=== PATIENT | male | born 1960 | race Caucasian/White ===

== ENCOUNTER 2017-08-03 04:47 | Inpatient (IN) | payer MEDICARE ==
[2017-08-03] MEDS: NS 1,000 ML IV ×3 (05:45→22:03)
[2017-08-03 06:52] LABS: ANION GAP 13 MEQ/L (8-16); BLOOD UREA NITROGEN 72 MG/DL (7-18); CALCIUM LEVEL 7.3 MG/DL (8.5-10.1); CARBON DIOXIDE LEVEL 22 MEQ/L (21-32); CHLORIDE LEVEL 96 MEQ/L (98-107); GLOMERULAR FILTRATION RATE 24.2 (>56); GLUCOSE, FASTING 95 MG/DL (70-100); POTASSIUM SERUM 4.8 MEQ/L (3.5-5.1); SODIUM LEVEL 131 MEQ/L (136-145)
[2017-08-03 06:55] LABS: CPK CREATINE PHOSPHOKINASE 888 U/L (39-308)
[2017-08-03] MEDS ORDERED: GLUCOSE 4 GM CHEW TABLET PO (09:45)
[2017-08-03] MEDS ORDERED: GLUCAGON FOR INJ 1 MG VIAL (J1610) SC (09:45)
[2017-08-03] MEDS ORDERED: DEXTROSE 50% 50 ML SYRINGE IV (09:45)
[2017-08-03] MEDS ORDERED: ONDANSETRON 4MG/2ML VIAL (J2405) IV (10:00)
[2017-08-03 11:40] LABS: BASO % 0.2 % (0.0-1.0); EOS # 0.2 10^3/uL (0.0-0.50); EOS % 1.7 % (0.0-3.0); HEMATOCRIT 31.5 % (42.0-52.0); IMMATURE GRANULOCYTE % 0.2 % (0-3.0); LYMPH % 22.8 % (24.0-44.0); MEAN CORPUSCULAR HEMOGLOBIN 30.2 pg (27.0-33.0); MEAN CORPUSCULAR HGB CONC 34.9 g/dl (32.0-36.5); MEAN CORPUSCULAR VOLUME 86.5 fl (80.0-96.0); MONO # 0.5 10^3/uL (0.0-0.8); MONO % 6.1 % (0.0-5.0); NEUTROPHILS # 6.1 10^3/uL (1.8-7.7); PLATELET COUNT, AUTOMATED 203 10^3/uL (150-450); RED BLOOD COUNT 3.64 10^6/uL (4.30-6.10); RED CELL DISTRIBUTION WIDTH 13.1 % (11.5-14.5); WHITE BLOOD COUNT 8.9 10^3/uL (4.0-10.0)
[2017-08-03 11:42] LABS: KETONE, URINE AUTO RFX NEGATIVE (NEGATIVE); LEUKOCYTE ESTERASE UR AUTO RFX NEGATIVE (NEGATIVE); MUCUS, URINE RFX SMALL (NEGATIVE); NITRITE, URINE AUTO RFX NEGATIVE (NEGATIVE); RBC, URINE AUTO RFX 76 /HPF (0-3); SPECIFIC GRAVITY UR AUTO RFX 1.011 (1.002-1.035); SQUAM EPITHELIAL CELL UR AURFX 0 /HPF (0-6); WBC, URINE AUTO RFX 3 /HPF (0-3)
[2017-08-03 11:47] LABS: OSMOLALITY URINE 342 MOSM/KG (500-800)
[2017-08-03 11:54] LABS: AMPHETAMINES LEVEL URINE POSITIVE (NEGATIVE); BARBITURATES URINE NEGATIVE (NEGATIVE); BENZODIAZEPINES URINE POSITIVE (NEGATIVE); CANNABINOIDS URINE NEGATIVE (NEGATIVE); CHLORIDE,RANDOM URINE < 10 MEQ/L; COCAINE METABOLITE URINE NEGATIVE (NEGATIVE); METHADONE URINE NEGATIVE (NEGATIVE); OPIATES URINE POSITIVE (NEGATIVE); PHENCYCLIDINE URINE NEGATIVE (NEGATIVE); POTASSIUM RANDOM URINE 18.2 MEQ/L; SODIUM,RANDOM URINE 36 MEQ/L; TOTAL PROTEIN,RANDOM URINE 23.7 MG/DL (0.0-12.0)
[2017-08-03 12:04] LABS: ACETAMINOPHEN LEVEL 2.2 UG/ML (10.0-30.0); CK-MB VALUE MASS 17.2 NG/ML (0.0-3.6); CPK CREATINE PHOSPHOKINASE 812 U/L (39-308); ETHYL ALCOHOL (ETHANOL) < 0.003 % (0.000-0.010); MB/CK RELATIVE INDEX 2.11 (< OR =4); SALICYLATE LEVEL < 1.7 MG/DL (5.0-30.0); THYROXINE (T4) 12.1 UG/DL (4.5-12.0); TROPONIN I < 0.02 NG/ML (< 0.10)
[2017-08-03 12:05] LABS: ESTIMATED AVERAGE GLUCOSE 169 MG/DL (60-110); HEMOGLOBIN A1c 7.5 %
[2017-08-03 12:30] LABS: FREE THYROXINE INDEX 4.4 % (1.4-3.8); T UPTAKE 36 % (33-40); THYROID STIMULATING HORMONE 0.788 uIU/ML (0.358-3.740)
[2017-08-03] MEDS: PREGABALIN 100 MG CAP (LYRICA) PO ×3 (12:34→22:05)
[2017-08-03] MEDS: HEPARIN SOD (PORCINE) 5000 UNITS/ML VIAL SC ×2 (12:34→13:33)
[2017-08-03] MEDS: SENOKOT S TAB PO ×2 (12:34→22:05)
[2017-08-03] MEDS: HumaLOG INSULIN (NovoLOG) PER UNIT SC ×3 (12:50→21:00)
[2017-08-03] MEDS: LEVEMIR (INSULIN DETEMIR) 1 UNITS/0.01ML SC ×2 (12:50→22:06)
[2017-08-03 12:51] LABS: BEDSIDE GLUCOSE 145 MG/DL (70-105)
[2017-08-03 16:25] LABS: CK-MB VALUE MASS 14.2 NG/ML (0.0-3.6); CPK CREATINE PHOSPHOKINASE 695 U/L (39-308); MB/CK RELATIVE INDEX 2.04 (< OR =4); TROPONIN I < 0.02 NG/ML (< 0.10)
[2017-08-03 16:51] LABS: BEDSIDE GLUCOSE 214 MG/DL (70-105)
[2017-08-03] MEDS ORDERED: TERAZOSIN 5 MG CAP PO (21:00)
[2017-08-03] MEDS: TAMSULOSIN 0.4 MG CAP PO (22:04)
[2017-08-03] MEDS: traZODone 100 MG TAB PO (22:04)
[2017-08-03] MEDS: FINASTERIDE 5 MG TAB PO (22:05)
[2017-08-03 22:14] LABS: BEDSIDE GLUCOSE 242 MG/DL (70-105)
[2017-08-04 05:45] LABS: HEMATOCRIT 34.8 % (42.0-52.0); HEMOGLOBIN 11.7 g/dl (14.0-18.0); MEAN CORPUSCULAR HEMOGLOBIN 29.5 pg (27.0-33.0); MEAN CORPUSCULAR HGB CONC 33.6 g/dl (32.0-36.5); MEAN CORPUSCULAR VOLUME 87.7 fl (80.0-96.0); PLATELET COUNT, AUTOMATED 225 10^3/uL (150-450); RED BLOOD COUNT 3.97 10^6/uL (4.30-6.10); RED CELL DISTRIBUTION WIDTH 13.2 % (11.5-14.5); WHITE BLOOD COUNT 6.3 10^3/uL (4.0-10.0)
[2017-08-04] MEDS: NS 1,000 ML IV (05:51)
[2017-08-04 06:13] LABS: ALBUMIN 3.1 GM/DL (3.2-5.2); ANION GAP 5 MEQ/L (8-16); BLOOD UREA NITROGEN 32 MG/DL (7-18); CALCIUM LEVEL 8.1 MG/DL (8.5-10.1); CARBON DIOXIDE LEVEL 23 MEQ/L (21-32); CHLORIDE LEVEL 112 MEQ/L (98-107); CREATININE FOR GFR 0.82 MG/DL (0.70-1.30); GLUCOSE, FASTING 192 MG/DL (70-100); MAGNESIUM LEVEL 2.4 MG/DL (1.8-2.4); PHOSPHORUS LEVEL 1.9 MG/DL (2.5-4.9); SODIUM LEVEL 140 MEQ/L (136-145)
[2017-08-04 06:14] LABS: GLOMERULAR FILTRATION RATE > 60.0 (>56); POTASSIUM SERUM 5.3 MEQ/L (3.5-5.1)
[2017-08-04] MEDS: SENOKOT S TAB PO ×2 (08:38→21:00)
[2017-08-04] MEDS: PREGABALIN 100 MG CAP (LYRICA) PO ×3 (08:39→21:49)
[2017-08-04] MEDS: HEPARIN SOD (PORCINE) 5000 UNITS/ML VIAL SC ×2 (08:39→21:54)
[2017-08-04] MEDS: HumaLOG INSULIN (NovoLOG) PER UNIT SC ×4 (08:40→21:00)
[2017-08-04] MEDS: LEVEMIR (INSULIN DETEMIR) 1 UNITS/0.01ML SC ×2 (10:03→21:52)
[2017-08-04 12:12] LABS: BEDSIDE GLUCOSE 203 MG/DL (70-105)
[2017-08-04 17:42] LABS: BEDSIDE GLUCOSE 176 MG/DL (70-105)
[2017-08-04] MEDS: traZODone 100 MG TAB PO (21:49)
[2017-08-04] MEDS: TAMSULOSIN 0.4 MG CAP PO (21:49)
[2017-08-04] MEDS: ACETAMINOPHEN TAB 650MG DOSE (2X325MG) PO (21:49)
[2017-08-04] MEDS: FINASTERIDE 5 MG TAB PO (21:50)
[2017-08-04] MEDS: ANALGESIC BALM CRM 120 GM TOP (21:51)
[2017-08-04 22:29] LABS: BEDSIDE GLUCOSE 229 MG/DL (70-105)
[2017-08-05 05:09] LABS: HEMATOCRIT 33.7 % (42.0-52.0); HEMOGLOBIN 11.6 g/dl (14.0-18.0); MEAN CORPUSCULAR HEMOGLOBIN 30.1 pg (27.0-33.0); MEAN CORPUSCULAR HGB CONC 34.4 g/dl (32.0-36.5); MEAN CORPUSCULAR VOLUME 87.5 fl (80.0-96.0); PLATELET COUNT, AUTOMATED 239 10^3/uL (150-450); RED BLOOD COUNT 3.85 10^6/uL (4.30-6.10); RED CELL DISTRIBUTION WIDTH 13.2 % (11.5-14.5)
[2017-08-05 05:27] LABS: ALBUMIN 3.2 GM/DL (3.2-5.2); ANION GAP 7 MEQ/L (8-16); BLOOD UREA NITROGEN 24 MG/DL (7-18); CALCIUM LEVEL 8.6 MG/DL (8.5-10.1); CARBON DIOXIDE LEVEL 25 MEQ/L (21-32); CHLORIDE LEVEL 111 MEQ/L (98-107); GLOMERULAR FILTRATION RATE > 60.0 (>56); GLUCOSE, FASTING 135 MG/DL (70-100); MAGNESIUM LEVEL 2.2 MG/DL (1.8-2.4); PHOSPHORUS LEVEL 2.1 MG/DL (2.5-4.9); POTASSIUM SERUM 4.3 MEQ/L (3.5-5.1); SODIUM LEVEL 143 MEQ/L (136-145)
[2017-08-05] MEDS: ANALGESIC BALM CRM 120 GM TOP (08:01)
[2017-08-05] MEDS: LEVEMIR (INSULIN DETEMIR) 1 UNITS/0.01ML SC (08:01)
[2017-08-05] MEDS: SENOKOT S TAB PO (08:01)
[2017-08-05] MEDS: DULoxetine 30 MG CAP (CYMBALTA) PO (08:01)
[2017-08-05] MEDS: HumaLOG INSULIN (NovoLOG) PER UNIT SC ×2 (08:02→12:06)
[2017-08-05] MEDS: PREGABALIN 100 MG CAP (LYRICA) PO (08:02)
[2017-08-05] MEDS: HEPARIN SOD (PORCINE) 5000 UNITS/ML VIAL SC (08:03)
[2017-08-05 11:23] LABS: BEDSIDE GLUCOSE 125 MG/DL (70-105)
[2017-08-05] MEDS: hydroCHLOROthiazide 25 MG TAB PO (13:15)
[2017-08-06] MEDS ORDERED: hydroCHLOROthiazide 25 MG TAB PO (09:00)
== END 2017-08-05 14:53 | disposition home or self-care (01) | DRG 683 ==
LOC: M ED 04:47 → M ED INP 09:49 → M PCU 14:30
PROVIDERS: Hospitalist
DX: N17.9 Acute kidney failure, unspecified (principal); E87.1 Hypo-osmolality and hyponatremia; E11.9 Type 2 diabetes mellitus without complications; I10 Essential (primary) hypertension; F32.9 Major depressive disorder, single episode, unspecified; E66.9 Obesity, unspecified; M25.512 Pain in left shoulder; F17.210 Nicotine dependence, cigarettes, uncomplicated; N40.1 Benign prostatic hyperplasia with lower urinary tract symptoms; M54.9 Dorsalgia, unspecified; T44.6X5A Adverse effect of alpha-adrenoreceptor antagonists, initial encounter; F11.10 Opioid abuse, uncomplicated; M96.1 Postlaminectomy syndrome, not elsewhere classified; M53.3 Sacrococcygeal disorders, not elsewhere classified; R33.9 Retention of urine, unspecified; N32.0 Bladder-neck obstruction; Z88.5 Allergy status to narcotic agent; Z88.6 Allergy status to analgesic agent; Z79.899 Other long term (current) drug therapy; Z79.4 Long term (current) use of insulin; Z88.8 Allergy status to other drugs, medicaments and biological substances; Z68.34 Body mass index [BMI] 34.0-34.9, adult

== ENCOUNTER → 2019-02-12 | Outpatient (REF) ==
[~2019-02-12] MED LIST: ABIL5TAB PO; ACTO45TA; BENA25CA2 PO; CATA0.1T PO; CELE100C; CELE10TA; CELE10TA PO; CELE20TA; CELEXA; CYMB1CAP5; CYMB60CA3 PO; CYMBALTA; DULO30CA9 PO; FINA5TAB2 PO; FLOM0.4C39 PO; GLIP5TAB2 PO; GLUC1000 PO; GLYB1TAB29; HYDR12.55 PO; HYDR1CRE TOP; IBUP200C25 PO; INSUH10VL SC; INSUHUMDS SC; INSULANT SC; KLON0.5T; KLON0.5T PO; LANTINJ4 SC; LISI-538 PO; LISI20TA20 PO; LYRI150C PO; LYRI200C PO; METF-791 PO; METF-877 PO; NEUR300C; NICO21DI26 EXT; NOVOLOG SC; NUCY100T16 PO; OXYC15TA50; OXYC30TA84 PO; OXYC60TA8 PO; OXYC80TA14; OXYC80TA14 PO; OXYC80TA22 PO; PATIENT COMMENT; PAXI20TA29 PO; PRESTIQ; PRIN10TA PO; PROZ10CA7 PO; PROZ20CA11 PO; PROZ40CA PO; ROBA500T PO; SOMA350T; SOMA350T PO; TERA10CA3 PO; TERA5CAP3 PO; TOUJ1.2I SC; TRAZ-163 PO; TRAZ50TA2 PO; VALI10TA PO; VALI5TAB; ZEST20TA8 PO; ZYPR1TAB3; ZYPR1TAB3 PO; ZYPR5TAB2 PO; [UNRECOGNIZED DRUG - OTHER]; auralgan AD; novolog SC; oxycontin PO
== END ==
LOC: M LAB LCGH 11:20
PROVIDERS: ATTEND Surgery
DX: K80.18 Calculus of gallbladder with other cholecystitis without obstruction (principal); K81.1 Chronic cholecystitis

== ENCOUNTER → 2019-11-09 | Outpatient (REF) ==
[~2019-11-09] MED LIST changes: -METF-791 PO; +METF-838 PO; -TRAZ-163 PO; +TRAZ-257 PO
== END ==
LOC: M LAB 11-08 08:54